=== PATIENT | female | born 1965 | race Caucasian/White ===

== ENCOUNTER 2016-12-01 09:30 | Emergency (ER) | payer OTHER ==
[~2016-12-01] VITALS: Ht 165.1 cm; Wt 72.6 kg
--- NOTE | 2016-12-01 09:30 | NUR ---
Jakob medina in EDM - 12/01/16 at 1046 by LADARIUS Pt was intubated by Dr. Lynch with myself, Bessie RAMOS, Spencer LOPEZ and Jose Rafael LOPEZ at bedside.
[2016-12-01] MEDS ORDERED: ASP (09:44)
[2016-12-01] MEDS ORDERED: norvasc (09:44)
--- NOTE | 2016-12-01 10:45 | NUR ---
Patient discharged to home in stable conditon. Written and verbal after care instructions given. Patient verbalizes understanding of instructions.
== END 2016-12-01 10:49 | disposition home or self-care (01) ==
LOC: ER 09:30
DX: I10 Essential (primary) hypertension (principal)
CPT/HCPCS: 99283; A4663